=== PATIENT | female | born 1990 | race Caucasian/White ===

== ENCOUNTER 2016-05-10 14:16 | Outpatient (CLI) | payer BC ==
[~2016-05-10] VITALS: Ht 162.6 cm; Wt 90.7 kg
[~2016-05-10 14:16] MED LIST: PHENERGAN; PREN1CAP20 PO
[2016-05-10 14:36] VITALS: BP 119/63
== END 2016-05-10 17:05 | disposition home or self-care (01) ==
LOC: LDOP 14:16
PROVIDERS: ATTEND Obstetrics & Gynecology Maternal & Fetal Medicine
DX: O36.8130 Decreased fetal movements, third trimester, not applicable or unspecified (principal); Z3A.36 36 weeks gestation of pregnancy
CPT/HCPCS: 59025; 81001; 87086; 99211; G0463

== ENCOUNTER 2016-05-11 19:55 | Outpatient (CLI) | payer BC | END 2016-05-11 21:29 | disposition home or self-care (01) | LOC: LDOP 19:55 | PROVIDERS: ATTEND Obstetrics & Gynecology Maternal & Fetal Medicine | DX: O42.92 Full-term premature rupture of membranes, unspecified as to length of time between rupture and onset of labor (principal); O32.1XX0 Maternal care for breech presentation, not applicable or unspecified; Z3A.37 37 weeks gestation of pregnancy | CPT/HCPCS: 59025; 76815; 89060; 99211; G0463; Q0114 ==

== ENCOUNTER 2016-05-19 07:04 | Inpatient (IN) | payer BC ==
[~2016-05-19] VITALS: Ht 162.6 cm; Wt 90.9 kg
[2016-05-19] MEDS ORDERED: LACTATED RINGERS 1,000 ML IV SCH ×2 (07:21→07:30)
[2016-05-19] MEDS ORDERED: OXYTOCIN 30U/ 0.9% NaCL 500ML 500 ML IV SCH (07:21)
[2016-05-19] MEDS ORDERED: LACTATED RINGERS 1,000 ML IVBOLUS ONE (07:30)
[2016-05-19] MEDS ORDERED: METOCLOPRAMIDE 5 MG/ML, 2ML IV ONE (07:30)
[2016-05-19] MEDS ORDERED: FENTANYL PF 100 MCG/2ML IVPush PRN (07:30)
[2016-05-19] MEDS ORDERED: SODIUM CITRATE/CITRIC ACID 30 ML UDC PO ONE (07:30)
[2016-05-19] MEDS ORDERED: FENTANYL PF 100 MCG/2ML ONE ×2 (07:42→07:53)
[2016-05-19] MEDS ORDERED: SODIUM CITRATE/CITRIC ACID 30 ML UDC ONE (07:52)
[2016-05-19] MEDS ORDERED: METOCLOPRAMIDE 5 MG/ML, 2ML ONE ×2 (07:52→08:14)
[2016-05-19 07:59] LABS: HEMOGLOBIN 11.4 g/dL (11.7-16.4)
[2016-05-19] MEDS ORDERED: OXYcodone 5 MG/5 ML ORAL.SOL UDC PO PRN (08:00)
[2016-05-19] MEDS ORDERED: PROMETHAZINE 25 MG/ML, 1ML IV PRN (08:00)
[2016-05-19] MEDS ORDERED: hydrALAzine 20 MG/ML, 1ML IV PRN (08:00)
[2016-05-19] MEDS ORDERED: ONDANSETRON 2MG/ML, 2ML IVPush PRN (08:00)
[2016-05-19] MEDS ORDERED: MIDAZOLAM 1 MG/ML, 2ML IV PRN (08:00)
[2016-05-19] MEDS ORDERED: EPHEDRINE 50 MG/ML, 1ML IVPush PRN (08:00)
[2016-05-19] MEDS ORDERED: LABETALOL 5MG/ML, 20ML IV PRN (08:00)
[2016-05-19] MEDS ORDERED: FENTANYL PF 100 MCG/2ML IV PRN (08:00)
[2016-05-19] MEDS ORDERED: ALBUTEROL SULFATE 2.5 MG/3 ML NPPB PRN (08:00)
[2016-05-19] MEDS ORDERED: MEPERIDINE/PF 25MG/0.5ML IVPush PRN (08:00)
[2016-05-19] MEDS ORDERED: HYDROcodone/APAP 7.5-325MG/15ML UDC PO PRN (08:00)
[2016-05-19] MEDS ORDERED: KETOROLAC 30 MG/1 ML ONE (08:14)
[2016-05-19] MEDS ORDERED: ONDANSETRON 2MG/ML, 2ML ONE (08:14)
[2016-05-19] MEDS ORDERED: CEFAZOLIN 1,000 MG ONE (08:14)
[2016-05-19] MEDS ORDERED: NEWBORN KIT ONE (08:15)
[2016-05-19] MEDS ORDERED: OXYTOCIN 30U/ 0.9% NaCL 500ML 500 ML ONE (09:26)
[2016-05-19] MEDS: LACTATED RINGERS 1,000 ML IV SCH ×4 (09:59→20:02)
[2016-05-19] MEDS: OXYTOCIN 30U/ 0.9% NaCL 500ML 500 ML IV SCH ×2 (09:59→19:59)
[2016-05-19] MEDS ORDERED: GLYCERIN ADULT SUPP PR PRN (10:00)
[2016-05-19] MEDS ORDERED: ACETAMINOPHEN 325 MG TABLET PO PRN ×2 (10:00)
[2016-05-19] MEDS ORDERED: MISOPROSTOL 200 MCG TABLET PR PRN (10:00)
[2016-05-19] MEDS ORDERED: ONDANSETRON 2MG/ML, 2ML IV PRN (10:00)
[2016-05-19] MEDS ORDERED: CARBOPROST TROMETHAMINE 250 MCG/ML, 1ML IM PRN (10:00)
[2016-05-19] MEDS ORDERED: CALCIUM CARBONATE 500 MG TAB.CHEW PO PRN (10:00)
[2016-05-19] MEDS ORDERED: SIMETHICONE 80 MG CHEW TAB PO PRN (10:00)
[2016-05-19] MEDS ORDERED: METOCLOPRAMIDE 5 MG/ML, 2ML IV PRN (10:00)
[2016-05-19] MEDS ORDERED: METHYLERGONOVINE 0.2 MG/ML IM PRN (10:00)
[2016-05-19] MEDS ORDERED: BISACODYL 10 MG SUPP PR PRN (10:00)
[2016-05-19 11:47] VITALS: BP 112/66
[2016-05-19] MEDS: OXYcodone/APAP 5/325MG TABLET PO PRN ×3 (11:53→22:54)
[2016-05-19] MEDS: KETOROLAC 30 MG/1 ML IV SCH ×2 (15:13→20:57)
[2016-05-19 15:31] VITALS: BP 125/74
[2016-05-19] MEDS: MEPERIDINE/PF 100 MG/ML IVPush PRN ×2 (16:23→19:45)
[2016-05-19 16:40] LABS: HEMOGLOBIN 10.6 g/dL (11.7-16.4)
[2016-05-19 16:58] LABS: DIFF TOTAL CELLS COUNTED 100 CELL DIFF
[2016-05-19 17:22] LABS: VERIFY COUNTS? YES
[2016-05-19 20:35] VITALS: BP 113/73
[2016-05-20] MEDS: MEPERIDINE/PF 50 MG/ML IVPush PRN ×3 (00:12→13:52)
[2016-05-20 00:30] VITALS: BP 110/65
[2016-05-20] MEDS: LACTATED RINGERS 1,000 ML IV SCH ×5 (01:59→16:16)
[2016-05-20] MEDS: KETOROLAC 30 MG/1 ML IV SCH ×4 (03:09→21:46)
[2016-05-20] MEDS: OXYcodone/APAP 5/325MG TABLET PO PRN ×3 (03:09→19:48)
[2016-05-20 03:35] VITALS: BP 116/71
[2016-05-20] MEDS: OXYTOCIN 30U/ 0.9% NaCL 500ML 500 ML IV SCH ×2 (05:59→15:59)
[2016-05-20 08:48] VITALS: BP 104/60
[2016-05-20] MEDS: PRENATAL VIT/IRON/FA 1 EACH TABLET PO SCH (08:58)
[2016-05-20] MEDS: DOCUSATE 100 MG CAPSULE PO PRN ×2 (08:58→19:48)
[2016-05-20 19:30] VITALS: BP 121/75
[2016-05-21] MEDS: OXYcodone/APAP 5/325MG TABLET PO PRN ×4 (00:31→22:06)
[2016-05-21] MEDS: LACTATED RINGERS 1,000 ML IV SCH ×6 (01:59→21:59)
[2016-05-21] MEDS: OXYTOCIN 30U/ 0.9% NaCL 500ML 500 ML IV SCH ×3 (01:59→21:59)
[2016-05-21] MEDS: KETOROLAC 30 MG/1 ML IV SCH ×2 (03:57→09:00)
[2016-05-21 07:43] VITALS: BP 126/80
[2016-05-21] MEDS: PRENATAL VIT/IRON/FA 1 EACH TABLET PO SCH (08:27)
[2016-05-21] MEDS: DOCUSATE 100 MG CAPSULE PO PRN ×2 (08:27→22:06)
[2016-05-21] MEDS: IBUPROFEN 800 MG TABLET PO PRN ×2 (13:40→22:05)
[2016-05-21 19:55] VITALS: BP 114/76
[2016-05-22] MEDS: LACTATED RINGERS 1,000 ML IV SCH (01:59)
[2016-05-22] MEDS: OXYcodone/APAP 5/325MG TABLET PO PRN (06:52)
[2016-05-22] MEDS: IBUPROFEN 800 MG TABLET PO PRN (06:52)
[2016-05-22 08:20] VITALS: BP 112/72
[2016-05-22] MEDS ORDERED: OXYC-302 PO (13:25)
[2016-05-22] MEDS ORDERED: IBUP800T PO (13:27)
== END 2016-05-22 14:50 | disposition home or self-care (01) | DRG 766 ==
LOC: LDOP 07:04 → LDIP 07:32 → 2NW 11:22
PROVIDERS: ADMIT Obstetrics & Gynecology Maternal & Fetal Medicine; ATTEND Obstetrics & Gynecology Maternal & Fetal Medicine
PROC: 10D00Z1 Extraction of Products of Conception, Low, Open Approach (ICD-10-PCS; principal; 2016-05-19)
DX: O32.1XX0 Maternal care for breech presentation, not applicable or unspecified (principal); Z37.0 Single live birth; O99.62 Diseases of the digestive system complicating childbirth; K58.9 Irritable bowel syndrome, unspecified; Z3A.39 39 weeks gestation of pregnancy; Z88.0 Allergy status to penicillin
CPT/HCPCS: 36415; 85025; 86850; 86900; J0690; J1885; J2175; J2405; J3010; J2590; J2765; J7120

== ENCOUNTER 2018-01-25 07:50 | Day surgery (SDC) | payer OTHER ==
[~2018-01-25] VITALS: Ht 167.6 cm; Wt 70.5 kg
[~2018-01-25 07:50] MED LIST changes: +IBUP-1223 PO; +OXYC-302 PO
[2018-01-25 08:16] VITALS: BP 116/79
[2018-01-25] MEDS ORDERED: ACET325T14 PO (08:30)
[2018-01-25] MEDS ORDERED: DOXY50CA42 PO (08:30)
[2018-01-25] MEDS ORDERED: MISOPROSTOL 200 MCG TABLET ONE (09:38)
[2018-01-25] MEDS ORDERED: OXYTOCIN 10 UNITS/ML, 1ML ONE (09:38)
[2018-01-25] MEDS ORDERED: METHYLERGONOVINE 0.2 MG/ML IM ONE (09:39)
[2018-01-25] MEDS ORDERED: SCOPOLAMINE PATCH, 1.5MG PATCH.TD72 TD ONE (09:53)
[2018-01-25] MEDS ORDERED: MIDAZOLAM 1 MG/ML, 2ML ONE (09:56)
[2018-01-25] MEDS ORDERED: LIDOCAINE-MPF 2% ,5ML ONE (09:56)
[2018-01-25] MEDS ORDERED: FENTANYL PF 100 MCG/2ML ONE ×2 (09:56→11:09)
[2018-01-25] MEDS ORDERED: DEXAMETHASONE 4 MG/ML, 1ML ONE ×2 (09:58)
[2018-01-25] MEDS ORDERED: VASOPRESSIN 20 UNIT/ML, 1ML ONE (10:27)
[2018-01-25] MEDS ORDERED: PROPOFOL 10 MG/ML, 20ML ONE (10:30)
[2018-01-25] MEDS ORDERED: ONDANSETRON 2MG/ML, 2ML ONE (10:30)
[2018-01-25] MEDS ORDERED: CEFAZOLIN 1,000 MG ONE (10:42)
[2018-01-25] MEDS ORDERED: OXYcodone 5 MG/5 ML ORAL.SOL UDC ONE ×2 (11:09→11:44)
[2018-01-25] MEDS ORDERED: OXYcodone 5 MG/5 ML ORAL.SOL UDC PO PRN (11:30)
[2018-01-25] MEDS ORDERED: FENTANYL PF 100 MCG/2ML IV PRN (11:30)
[2018-01-25] MEDS ORDERED: MEPERIDINE/PF 25MG/0.5ML IVPush PRN (11:30)
[2018-01-25] MEDS ORDERED: DIAZEPAM 5 MG/ML, 2ML IVPush PRN (11:30)
[2018-01-25] MEDS ORDERED: DIPHENHYDRAMINE 50 MG/ML, 1ML IVPush PRN (11:30)
[2018-01-25] MEDS ORDERED: HYDROmorphone 1 MG/ML, 1ML IV PRN (11:30)
[2018-01-25] MEDS ORDERED: ACETAMINOPHEN 325 MG TABLET PO PRN (11:30)
== END 2018-01-25 13:57 | disposition home or self-care (01) ==
LOC: OR 07:50 → 4NOR 08:00 → OR 13:57
PROVIDERS: ATTEND Obstetrics & Gynecology Maternal & Fetal Medicine
DX: O02.1 Missed abortion (principal); F32.9 Major depressive disorder, single episode, unspecified; Z3A.10 10 weeks gestation of pregnancy; Z98.890 Other specified postprocedural states; Z88.0 Allergy status to penicillin
CPT/HCPCS: 59820; 88305; J0690; J1100; J2250; J2405; J2704; J3010; J3490; G0378; J2210; J2590

== ENCOUNTER 2018-03-07 11:13 | Day surgery (SDC) | payer OTHER ==
[~2018-03-07] VITALS: Ht 167.6 cm; Wt 73.8 kg
[~2018-03-07 11:13] MED LIST changes: +ACET325T14 PO; +DOXY50CA42 PO
[2018-03-07 11:41] VITALS: BP 119/81
[2018-03-07] MEDS ORDERED: LACTATED RINGERS 1,000 ML IV SCH (11:47)
[2018-03-07 11:58] LABS: HCG UR SG 1.013 (1.003-1.030); MICROSCOPIC AUTO
[2018-03-07 12:16] LABS: BASOPHILS # (AUTO) 0.03 x10^3/uL (0-0.1); BASOPHILS % (AUTO) 0 % (0-1); EOSINOPHILS # (AUTO) 0.17 x10^3/uL (0-0.4); EOSINOPHILS % (AUTO) 2 % (1-7); LYMPHOCYTES # (AUTO) 1.45 x10^3/uL (1-3.4); LYMPHOCYTES % (AUTO) 16 % (22-44); MD NO; MEAN CORPUSCULAR HEMOGLOBIN 30.9 pg (27.0-34.8); MEAN CORPUSCULAR HGB CONC 34.3 g/dL (32.4-35.8); MEAN CORPUSCULAR VOLUME 90.2 fL (80-100); MEAN PLATELET VOLUME 9.7 fL (7.4-10.4); MONOCYTES # (AUTO) 0.35 x10^3/uL (0.2-0.8); MONOCYTES % (AUTO) 4 % (2-9); NEUTROPHILS # (AUTO) 7.14 x10^3/uL (1.8-6.8); NEUTROPHILS % (AUTO) 78 % (42-75); PLATELET COUNT 299 x10^3/uL (130-400); RED BLOOD COUNT 4.28 x10^6/uL (3.82-5.3); RED CELL DISTRIBUTION WIDTH 12.3 % (9.6-15.2)
[2018-03-07] MEDS ORDERED: FENTANYL PF 100 MCG/2ML ONE ×2 (12:24→14:05)
[2018-03-07] MEDS ORDERED: MIDAZOLAM 1 MG/ML, 2ML ONE (12:24)
[2018-03-07] MEDS ORDERED: CEFAZOLIN 1,000 MG ONE (12:49)
[2018-03-07] MEDS ORDERED: ONDANSETRON 2MG/ML, 2ML ONE (12:49)
[2018-03-07] MEDS ORDERED: LIDOCAINE-MPF 2% ,5ML ONE (12:49)
[2018-03-07] MEDS ORDERED: DEXAMETHASONE 4 MG/ML, 5ML ONE (12:49)
[2018-03-07] MEDS ORDERED: DIAZEPAM 5 MG/ML, 2ML IVPush PRN (13:00)
[2018-03-07] MEDS ORDERED: SCOPOLAMINE PATCH, 1.5MG PATCH.TD72 TD ONE (13:00)
[2018-03-07] MEDS ORDERED: OXYcodone 5 MG/5 ML ORAL.SOL UDC PO PRN (13:00)
[2018-03-07] MEDS ORDERED: ONDANSETRON 2MG/ML, 2ML IV PRN (13:00)
[2018-03-07] MEDS ORDERED: ONDANSETRON ODT 8 MG PO PRN (13:00)
[2018-03-07] MEDS ORDERED: DIAZEPAM 5 MG TABLET PO ONE (13:00)
[2018-03-07] MEDS ORDERED: PROMETHAZINE 25 MG/ML, 1ML IV PRN (13:00)
[2018-03-07] MEDS ORDERED: ACETAMINOPHEN 500 MG TABLET PO ONE (13:00)
[2018-03-07] MEDS ORDERED: PROPOFOL 50 ML ONE (13:07)
[2018-03-07] MEDS ORDERED: SILVER NITRATE STICK TP ONE (13:23)
[2018-03-07] MEDS ORDERED: KETOROLAC 30 MG/1 ML IVPush PRN (14:00)
[2018-03-07] MEDS ORDERED: KETOROLAC 30 MG/1 ML ONE (14:05)
[2018-03-07] MEDS ORDERED: OXYcodone 5 MG/5 ML ORAL.SOL UDC ONE (14:06)
[2018-03-07] MEDS: FENTANYL PF 100 MCG/2ML IV PRN ×2 (14:08→14:21)
[2018-03-07] MEDS ORDERED: HYDROmorphone 2 MG/ML, 1ML ONE (14:26)
[2018-03-07] MEDS: HYDROmorphone 2 MG/ML, 1ML IVPush PRN ×2 (14:28→14:35)
== END 2018-03-07 16:35 | disposition home or self-care (01) ==
LOC: OUT 11:13
PROVIDERS: ATTEND Obstetrics & Gynecology Maternal & Fetal Medicine
DX: N92.0 Excessive and frequent menstruation with regular cycle (principal); F32.9 Major depressive disorder, single episode, unspecified; Z98.890 Other specified postprocedural states; Z88.0 Allergy status to penicillin
CPT/HCPCS: 36415; 58558; 81001; 81025; 85025; 88305; J0690; J1100; J1170; J1885; J2250; J2405; J2704; J3010; J3490; J7120